=== PATIENT | male | born 1990 | race Caucasian/White ===

== ENCOUNTER 2016-09-21 05:31 | Emergency (ER) | payer OTHER ==
--- NOTE | 2016-09-21 18:34 | ER ---
ADMIT: 09/21/2016 RM/LOC: ER [facility] MR#: [id number] [address] [id number] [place] [address] [place] [address] Emergency Room Report SEX: M AGE: 25 : 1990 DATE: 09/21/2016 ADDENDUM: This is a 25-year-old white male, coming in early in the morning, I refer you to Dr. Blair's T-sheet. Essentially, the patient has nausea and vomiting, unable to keep anything down. He had some pain. White count was up a little bit. However, CT scan was completely negative as discussed with radiologist. Diagnosis still nausea, vomiting, diarrhea, probable all due to viral syndrome. At this time, he had received 2 L of fluid, he had total of 16 of Zofran IV. I gave him Phenergan to go home with, 25, #30, one to two p.o. q.6 p.r.n. nausea. He is n.p.o. for a couple hours and sips of 7 up, Gatorade, as directed for the next 24 hours. Advance diet slowly. He is off work through Wednesday. CONDITION ON DISCHARGE: Improved. Regulo Bates MD/ [facility] JOB #: [id number] CC: Talha Blair MD, Attending Physician UNKNOWN, Family Physician
== END 2016-09-21 11:22 | disposition home or self-care (01) ==
LOC: ER 05:31
DX: R10.9 Unspecified abdominal pain (principal); R11.2 Nausea with vomiting, unspecified; I10 Essential (primary) hypertension; Z79.899 Other long term (current) drug therapy